=== PATIENT | male | born 1955 | race Caucasian/White ===

== ENCOUNTER → 2018-05-20 18:27 | Outpatient (CLI) | payer OTHER, SELFPAY ==
--- NOTE | 2018-05-20 18:36 | DI.RAD.S_ITS ---
PROCEDURE: XR TOE LT MIN 2V INDICATIONS: l toe pain TECHNIQUE: AP foot and 2 views of the second toe(s) acquired. COMPARISON: None. FINDINGS: Bones: Mildly displaced, spiral fracture of the lateral distal aspect of the second proximal phalanx. No definite intra-articular extension of the fracture plane. No dislocation. Additionally, there may be a nondisplaced fracture across the medial base of the third proximal phalanx with extension to the articular surface. This is seen on single view only. Moderate degenerative change present at the first metatarsal-phalangeal joint. No suspicious bony lesions. Soft tissues: No suspicious soft tissue densities. The mild atherosclerosis. IMPRESSION: 1. Mildly displaced spiral fracture of the second proximal phalanx. 2. Nondisplaced intra-articular fracture at the third proximal phalanx base. 3. Atherosclerosis. Dictated by: Kelly Murray M.D. on 05/20/2018 at 19:05 Approved by: Kelly Murray M.D. on 05/20/2018 at 19:08
== END ==
PROVIDERS: PCP Family Medicine; Visit Provider Physician Assistant
DX: M79.675 Pain in left toe(s) (principal); S92.532A Displaced fracture of distal phalanx of left lesser toe(s), initial encounter for closed fracture; S92.515A Nondisplaced fracture of proximal phalanx of left lesser toe(s), initial encounter for closed fracture; I70.90 Unspecified atherosclerosis
CPT/HCPCS: 73660